=== PATIENT | female | born 1960 | race Caucasian/White ===

== ENCOUNTER 2021-05-04 10:20 | Emergency (ER) | payer OTHER, SELFPAY ==
[2021-05-04 10:32] VITALS: BP 136/73; PULSE 95; RESP 16; TEMP 36.8; O2SAT 98
--- NOTE | 2021-05-04 11:43 | ED.URI ---
HPI - URI/Sore Throat General Chief Complaint: Upper Respiratory Infection Stated Complaint: Bad cough, stomach pains Time Seen by Provider: 05/04/21 11:43 Source: patient and RN notes reviewed Mode of arrival: ambulatory Limitations: no limitations History of Present Illness HPI Narrative: 60-year-old female presents concern for 5-day history of persistent cough, rhinorrhea. She reports she has been vaccinated for Covid. She denies fever, body aches, chills, sweats, ear pain, sore throat. Reports itchy ears. Reports discomfort with coughing to the right upper back MD elicited complaint: cough and rhinorrhea Related Data Home Medications Medication Instructions Recorded Confirmed levothyroxine 112 mcg PO DAILY 05/04/21 05/04/21 primidone 50 mg PO HS 05/04/21 05/04/21 Allergies Allergy/AdvReac Type Severity Reaction Status Date / Time No Known Allergies Allergy Verified 05/04/21 10:40 Review of Systems Review of Systems: CONSTITUTIONAL: Denies malaise, chills, sweats, or fever. EYES: Denies visual changes, redness, or discharge. ENT: Reports rhinorrhea. Denies congestion, sinus pain, otalgia and sore throat. CARDIOVASCULAR: Denies chest pain, palpitations, or edema. RESPIRATORY: Reports persistent cough. Denies dyspnea. GASTROINTESTINAL: Denies abdominal pain, nausea, vomiting, diarrhea SKIN: Denies rash or itching. MUSCULOSKELETAL: Denies myalgia. Reports upper back pain with coughing NEUROLOGIC: Denies headache. All systems reviewed & are unremarkable except as noted in HPI and below PMFSH Family History Family History (Updated 01/02/16 @ 23:21 by DOCTOR UNKNOWN) Mother Patient's mother is in good health Hypertension Father Patient's father is in good health Family history of diabetes mellitus in first degree relative Sibling Patient's sister is in good health Patient's brother is in good health Other Diabetes mellitus Family history of kidney disease Social History Social History Smoking status: Former smoker Second hand tobacco smoke exposure: No Smoking end date: 06/06/08 Alcohol intake: never Comments At time of signature, agree with nursing past medical, surgical, social and family history. There is no relevant family history pertinent to the presenting complaint Exam Narrative: GENERAL: Well-appearing, well-nourished, and in no acute distress. HEAD: Normocephalic EYES: PERRLA, conjunctivae clear ENT: Nares clear, clear discharge. Mucous membranes moist. TM pearly james with sharp light reflex bilaterally; no tragal tenderness. Oropharynx not erythematous without lesions. Tonsils not enlarged and without exudate, no drooling, no hoarseness, no trismus, uvula midline. NECK: Supple. No lymphadenopathy CHEST: Clear to auscultation, breath sounds equal. No wheezing, rhonchi, rales, or stridor. No respiratory distress, speaks in full sentences. Cough noted HEART: Regular rate and rhythm. No murmur heard. SKIN: Warm, dry, no rash. NEURO: Alert and oriented x3. PSYCH: Normal mood and affect Course Course Emergency Course: Patient is aware of diagnosis, understands and agrees to treatment plan. Anticipatory guidance given. Patient agrees to follow-up as directed and is aware of reasons to seek care at the emergency department. Portions of this record may have been created with voice recognition software Vital Signs Vital signs: Vital Signs Temperature 98.3 F 05/04/21 10:32 Pulse Rate 95 05/04/21 10:32 Respiratory Rate 16 05/04/21 10:32 Blood Pressure 136/73 05/04/21 10:32 Pulse Oximetry 98 05/04/21 10:32 Temperature 98.3 F 05/04/21 10:32 Pulse Rate 95 05/04/21 10:32 Respiratory Rate 16 05/04/21 10:32 Blood Pressure 136/73 05/04/21 10:32 Pulse Oximetry 98 05/04/21 10:32 Reviewed. MDM - URI/Sore Throat MDM Narrative Medical decision making narrative: Differential diagnosis considered: Jin virus, strep pharyngitis, allergic rh
== END 2021-05-04 11:55 | disposition home or self-care (01) ==
PROVIDERS: Emergency Provider Nurse Practitioner
DX: J06.9 Acute upper respiratory infection, unspecified (principal); Z87.891 Personal history of nicotine dependence; E03.9 Hypothyroidism, unspecified; Z85.3 Personal history of malignant neoplasm of breast; N61.1 Abscess of the breast and nipple
CPT/HCPCS: 99203; G0463

== ENCOUNTER 2021-05-15 14:43 | Emergency (ER) | payer SELFPAY ==
--- NOTE | ~2021-05-15 | XR_ITS ---
EXAMINATION: XR chest 2V DATE: 05/15/2021 15:10 INDICATION: Persistent cough TECHNIQUE: PA and lateral views of the chest are obtained. COMPARISON: No comparisons are currently available FINDINGS: There is subsegmental atelectasis of the left lung base. There is no pleural effusion or pn eumothorax. The cardiomediastinal silhouette is normal. There is mild thoracic spondylosis. Surgical clips are noted in the left breast and left axilla. IMPRESSION: 1. Mild atelectasis of the left lung base. Reviewed, dictated and finalized at location [facility]. [facility]
[2021-05-15 14:48] VITALS: BP 148/85; PULSE 94; RESP 14; TEMP 36.2; O2SAT 97
--- NOTE | 2021-05-15 15:41 | ED.URI ---
HPI - URI/Sore Throat General Chief Complaint: Upper Respiratory Infection Stated Complaint: cough causing pain Source: patient and RN notes reviewed Mode of arrival: ambulatory History of Present Illness HPI Narrative: This is a 60-year-old female that presented to urgent care with complaints of right ear pain and drainage chronic cough and runny nose. Patient was recently here at our facility on 05/04/2021 and diagnosed with upper respiratory infection she notes that her condition has not improved she continues to have a chronic cough. She also notes that she has had some issues with her right ear she notes that she felt congested in the right ear and later experienced yellowish drainage from the ear after feeling a pop. The patient denies SOB, CP, palpitation, extremity numbness, lightheadedness, decrease in hearing, dizziness, constipation, diarrhea, chills, or fever. Covid and influenza negative Related Data Home Medications Medication Instructions Recorded Confirmed levothyroxine 112 mcg PO DAILY 05/04/21 05/15/21 primidone 50 mg PO BID 05/04/21 05/15/21 Allergies Allergy/AdvReac Type Severity Reaction Status Date / Time No Known Allergies Allergy Verified 05/15/21 14:59 Review of Systems Review of Systems: A 14 organ system Review of Systems was performed and pertinent positives included in the HPI, otherwise remaining ROS is negative. [facility] Family History Family History (Updated 05/15/21 @ 15:43 by RONI Perez) Mother Patient's mother is in good health Hypertension Father Patient's father is in good health Family history of diabetes mellitus in first degree relative Sibling Patient's sister is in good health Patient's brother is in good health Other Diabetes mellitus Family history non-contributory Family history of kidney disease Social History Social History Smoking status: Former smoker Second hand tobacco smoke exposure: No Smoking end date: 06/06/08 Alcohol intake: never Exam Narrative: GENERAL: This is a well-nourished, well-developed patient, in no apparent distress. HEAD: normocephalic, atraumatic. EYES: PERRL. Sclera clear/white. Vision is grossly intact. EARS: External ears normal, auditory canals with slight edema and without drainage, TMs normal with perforation. Hearing grossly intact. NOSE: External nose normal with no obvious nasal discharge, nares without redness, no rhinorrhea. THROAT: Mucous membranes moist, posterior pharynx clear. NECK: Neck supple, non-tender without lymphadenopathy, masses or thyromegaly. CARDIOVASCULAR: Regular rate and rhythm without murmurs, gallops, or rubs. RESPIRATORY: Left upper and lower lobe diminished. All other de clear GASTROINTESTINAL: Abdomen soft, non-tender, nondistended. Bowel sounds are active. No hepato-splenomegaly, or palpable masses. No guarding. SKIN: warm, intact with no suspicious lesions or rash, good texture and turgor. NEURO: awake, alert, and oriented to person, place and time. There were no obvious focal neurologic abnormalities. Steady gait EXTREMITIES: Normal range of motion. No edema. No calf tenderness. Negative Homans sign bilaterally. BACK: Nontender without deformity or crepitance. No flank tenderness. Course Course Emergency Course: Patient diagnosed with bronchitis she will discharge home with albuterol, Tessalon Perles, guaifenesin in Augmentin for treatment of her otitis media. Vital Signs Vital signs: Vital Signs Temperature 97.2 F L 05/15/21 14:48 Pulse Rate 94 05/15/21 14:48 Respiratory Rate 14 05/15/21 14:48 Blood Pressure 148/85 H 05/15/21 14:48 Pulse Oximetry 97 05/15/21 14:48 Temperature 97.2 F L 05/15/21 14:48 Pulse Rate 94 05/15/21 14:48 Respiratory Rate 14 05/15/21 14:48 Blood Pressure 148/85 H 05/15/21 14:48 Pulse Oximetry 97 05/15/21 14:48 MDM - URI/Sore Throat Differenti
== END 2021-05-15 15:59 | disposition home or self-care (01) ==
PROVIDERS: Emergency Provider Nurse Practitioner
DX: J40 Bronchitis, not specified as acute or chronic (principal); H66.90 Otitis media, unspecified, unspecified ear; Z20.822 Contact with and (suspected) exposure to COVID-19; Z87.891 Personal history of nicotine dependence
CPT/HCPCS: 71046; 87426; 87804; 99213; C9803; G0463

== ENCOUNTER 2021-09-18 08:22 | Emergency (ER) | payer SELFPAY ==
[2021-09-18 08:27] VITALS: BP 152/72; PULSE 88; RESP 20; TEMP 36.2; O2SAT 98
--- NOTE | 2021-09-18 08:37 | ED.FEMALEGU ---
HPI - Female Genitourinary General Chief complaint: Urogenital-Female Stated complaint: Urinary Problem Time Seen by Provider: 09/18/21 08:38 Source: patient, RN notes reviewed and old records reviewed Mode of arrival: ambulatory Limitations: no limitations History of Present Illness HPI Narrative: 60 year old [facility] complaints of urinary frequency, urgency, and burning since yesterday.Patient reports that she has been taking Azo for her symptoms with last dose taken this morning. Patient denies any vaginal discharge or any itching,denies any concern for STD exposure. Patient reports that she has had kidney stones in the past but denies any back pain or any suprapubic or abdominal discomfort as she has experienced before with stones. MD elicited complaint: dysuria Onset (ago): day(s) (1) Consistency: progressively worsening Vaginal discharge: none Vaginal bleeding: none Urinary symptoms: Dysuria, Urgency and Frequency Exacerbating factors: urination Relieving factors: none Treatment prior to arrival: OTC urinary analgesics Related Data Home Medications Medication Instructions Recorded Confirmed levothyroxine [Tirosint] 112 mcg PO .6 X WEEK 09/18/21 09/18/21 Allergies Allergy/AdvReac Type Severity Reaction Status Date / Time No Known Allergies Allergy Verified 09/18/21 08:38 Review of Systems Review of Systems: CONSTITUTIONAL: Denies fever, chills, or sweats. EYES: Denies visual changes, redness, or discharge. ENT: Denies rhinorrhea, congestion, sore throat, or otalgia. CARDIOVASCULAR: Denies chest pain, palpitations, or edema. RESPIRATORY: Denies cough or dyspnea. GASTROINTESTINAL: Denies abdominal pain, nausea, vomiting, or diarrhea. GENITOURINARY: Positive for dysuria denies any visible hematuria. SKIN: Denies rash or itching. MUSCULOSKELETAL: Denies back pain, joint pain, or myalgia. NEUROLOGIC: Denies headache, numbness, or weakness. PSYCHIATRIC: Denies anxiety or depression. All systems reviewed & are unremarkable except as noted in HPI and below PMFSH Past Medical History Medical History (Updated 09/18/21 @ 08:58 by Linda Alvarado NP) Breast cancer, left GERD (gastroesophageal reflux disease) Hypothyroid Kidney stones Surgical History Surgical History (Updated 09/18/21 @ 12:38 by Linda Alvarado NP) H/O left mastectomy H/O lithotripsy History of breast reconstruction History of cystoscopy with removal of kidney stones History of hysterectomy Hx of cholecystectomy Family History Family History Mother Patient's mother is in good health Hypertension Father Patient's father is in good health Family history of diabetes mellitus in first degree relative Sibling Patient's sister is in good health Patient's brother is in good health Other Diabetes mellitus Family history non-contributory Family history of kidney disease Social History Social History Smoking status: Former smoker Second hand tobacco smoke exposure: No Smoking end date: 06/06/08 Alcohol intake: never Comments At time of signature, agree with nursing past medical, surgical, social and family history. There is no relevant family history pertinent to the presenting complaint Exam Narrative: GENERAL: Well-appearing, well-nourished, and in no acute distress. HEAD: Normocephalic, atraumatic. EYES: PERRLA and EOMI. ENT: Nares clear, no rhinorrhea or epistaxis. Mucous membranes moist.TM's normal with good light reflex, throat pink with no lesions or exudates, tonsils absent NECK: Supple. no lymphadenopathy CHEST: Clear to auscultation. No respiratory distress. HEART: Regular rate and rhythm. No murmur heard. Normal peripheral pulses. ABDOMEN: Soft, nontender, nondistended, normal active bowel sounds.No CVA tenderness on exam, burning with urination frequency and urgency
== END 2021-09-18 09:00 | disposition home or self-care (01) ==
PROVIDERS: Emergency Provider Registered Nurse
DX: N39.0 Urinary tract infection, site not specified (principal); Z87.891 Personal history of nicotine dependence; K21.9 Gastro-esophageal reflux disease without esophagitis; E03.9 Hypothyroidism, unspecified; Z85.3 Personal history of malignant neoplasm of breast; Z90.12 Acquired absence of left breast and nipple
CPT/HCPCS: 81003; 87077; 87086; 87088; 87186; 99213; G0463

== ENCOUNTER 2021-10-05 11:53 | Emergency (ER) | payer SELFPAY ==
[2021-10-05 12:00] VITALS: BP 143/73; PULSE 97; RESP 16; TEMP 37.2; O2SAT 98
--- NOTE | 2021-10-05 12:40 | ED.FEMALEGU ---
HPI - Female Genitourinary General Chief complaint: Urogenital-Female Stated complaint: Urinary Problem Time Seen by Provider: 10/05/21 12:26 Source: patient and RN notes reviewed Mode of arrival: ambulatory Limitations: no limitations History of Present Illness HPI Narrative: Patient presents today complaining of 3-day history of urinary urgency, dysuria, lower abdominal cramping with mild nausea. Denies hematuria, back pain, fever. Patient was seen here approximately 2 weeks ago and diagnosed with a UTI and was placed on Keflex. States her symptoms did resolve for short period of time before returning. Her urine culture shows positive for E. coli and she was sensitive for Keflex. She has been taking Azo. Her last dose was this morning MD elicited complaint: UTI Related Data Home Medications Medication Instructions Recorded Confirmed levothyroxine [Tirosint] 112 mcg PO .6 X WEEK 09/18/21 10/05/21 Allergies Allergy/AdvReac Type Severity Reaction Status Date / Time No Known Allergies Allergy Verified 09/18/21 08:38 Review of Systems Review of Systems: CONSTITUTIONAL: Denies body aches, fever, chills, or sweats. EYES: Denies visual changes, redness, or discharge. ENT: Denies rhinorrhea, congestion, sore throat, or otalgia. CARDIOVASCULAR: Denies chest pain, palpitations, or edema. RESPIRATORY: Denies cough or dyspnea. GASTROINTESTINAL: Denies abdominal pain, vomiting, or diarrhea.+ Nausea GENITOURINARY: Denies hematuria.+., Urgency, abdominal cramping SKIN: Denies rash, itching, or wounds. MUSCULOSKELETAL: Denies back pain, joint pain, or myalgia. NEUROLOGIC: Denies headache, numbness, tingling, or weakness. PSYCH: Denies depression or anxiety. [facility] Past Medical History Medical History Breast cancer, left GERD (gastroesophageal reflux disease) Hypothyroid Kidney stones Surgical History Surgical History H/O left mastectomy H/O lithotripsy History of breast reconstruction History of cystoscopy with removal of kidney stones History of hysterectomy Hx of cholecystectomy Family History Family History Mother Patient's mother is in good health Hypertension Father Patient's father is in good health Family history of diabetes mellitus in first degree relative Sibling Patient's sister is in good health Patient's brother is in good health Other Diabetes mellitus Family history non-contributory Family history of kidney disease Social History Social History Smoking status: Former smoker Second hand tobacco smoke exposure: No Smoking end date: 06/06/08 Alcohol intake: never Comments At time of signature, I have reviewed and agree with nursing past medical, surgical, social and family history unless otherwise noted. Please see nursing chart for further information. There is no relevant family history pertinent to the presenting complaint Exam Narrative: GENERAL: Well-appearing, well-nourished, and in no acute distress. HEAD: Normocephalic, atraumatic. EYES: EOMI. No redness or drainage. Conjunctivae normal. ENT: Mucous membranes pink and moist. NECK: Normal AROM. CHEST: No respiratory distress. Clear to auscultation. HEART: Regular rate and rhythm. No murmur appreciated. Normal peripheral pulses. ABDOMEN: Soft, nontender, nondistended, normal active bowel sounds.-CVAT MUSCULOSKELETAL: No bony tenderness. EXTREMITIES: Normal range of motion. No edema. SKIN: Warm, dry, no rash. Capillary refill normal. Normal skin turgor. NEURO: No focal deficits. Alert and oriented x3. Gait steady. PSYCH: Normal affect. No signs of depression or anxiety. Course Course Level of Care: Express Care Visit Vital Signs Vital signs: Vital Signs Te
== END 2021-10-05 12:47 | disposition home or self-care (01) ==
PROVIDERS: Emergency Provider Nurse Practitioner
DX: N30.01 Acute cystitis with hematuria (principal); E03.9 Hypothyroidism, unspecified; Z87.891 Personal history of nicotine dependence; Z85.3 Personal history of malignant neoplasm of breast
CPT/HCPCS: 81003; 87086; 87088; 99213; G0463

== ENCOUNTER 2022-09-17 11:19 | Emergency (ER) | payer OTHER, SELFPAY ==
[2022-09-17 11:30] VITALS: BP 147/80; PULSE 103; RESP 18; TEMP 36.7; O2SAT 96
--- NOTE | 2022-09-17 12:23 | ED.URI ---
HPI - URI/Sore Throat General Chief Complaint: Upper Respiratory Infection Stated Complaint: Chest Congestion Time Seen by Provider: 09/17/22 12:23 Source: patient Mode of arrival: ambulatory Limitations: no limitations History of Present Illness HPI Narrative: 61 year old female who presents to [facility] care with complaints of one week duration of cough some shortness of breath, and wheezing with head congestion. Patient reports that her cough is harsh and she has some back and rib pain from coughing. She reports that spouse had cold last week. She has taken some DayQuil and NyQuil for her symptoms and had a left over Tessalon Perle with no improvement in symptoms. MD elicited complaint: cough, rhinorrhea, nasal congestion and other (wheezing and some SOB) Onset (ago): week(s) (1) Consistency: constant Pain scale (0-10): 2 Description of mucous: clear Able to tolerate fluids by mouth: Yes Exacerbating factors: exertion Treatments prior to arrival: other (DayQuil,NyQuil, left over Tesslon Perle) Related Data Home Medications Medication Instructions Recorded Confirmed levothyroxine 112 mcg capsule 112 mcg PO .6 X WEEK 09/18/21 09/17/22 (Tirosint) Allergies Allergy/AdvReac Type Severity Reaction Status Date / Time No Known Allergies Allergy Verified 09/18/21 08:38 Review of Systems Review of Systems: CONSTITUTIONAL: reports malaise, no chills, sweats, or fever. EYES: Denies visual changes, redness, or discharge. ENT: Reports rhinorrhea, congestion, sinus pain, no otalgia and sore throat. CARDIOVASCULAR: Denies chest pain, palpitations, or edema. RESPIRATORY: Reports harsh cough.? dyspnea with exertion GASTROINTESTINAL: Denies abdominal pain, nausea, vomiting, diarrhea SKIN: Denies rash or itching. MUSCULOSKELETAL: Denies myalgia. NEUROLOGIC: Denies headache. All systems reviewed & are unremarkable except as noted in HPI and below PMFSH Past Medical History Medical History Breast cancer, left GERD (gastroesophageal reflux disease) Hypothyroid Kidney stones Surgical History Surgical History H/O left mastectomy H/O lithotripsy History of breast reconstruction History of cystoscopy with removal of kidney stones History of hysterectomy Hx of cholecystectomy Family History Family History Mother Patient's mother is in good health Hypertension Father Patient's father is in good health Family history of diabetes mellitus in first degree relative Sibling Patient's sister is in good health Patient's brother is in good health Other Diabetes mellitus Family history non-contributory Family history of kidney disease Social History Social History (Updated 09/19/22 @ 08:33 by Linda Alvarado NP) Smoking status: Former smoker Second hand tobacco smoke exposure: No Smoking end date: 06/06/08 Alcohol intake: never Substance use: never Living arrangements: with family Gender identity (if verbalized by the patient): Female Comments At time of signature, agree with nursing past medical, surgical, social and family history. There is no relevant family history pertinent to the presenting complaint Exam Narrative: GENERAL: Well-appearing, well-nourished, and in no acute distress. HEAD: Normocephalic EYES: PERRLA, conjunctivae clear ENT: Nares clear, turbinates edematous and erythematous, clear discharge. Mucous membranes moist. TM pearly james with dull light reflex bilaterally; no tragal tenderness. Oropharynx erythematous without lesions. Tonsils not present and throat without exudate, no drooling, no hoarseness, no trismus, uvula midline.post nasal drainage NECK: Supple. No lymphadenopathy CHEST:Scattered wheezes on auscultation, breath sounds equal.positive for wheezing,no rhonchi, rales, or stridor
== END 2022-09-17 12:40 | disposition home or self-care (01) ==
PROVIDERS: Emergency Provider Registered Nurse
DX: J40 Bronchitis, not specified as acute or chronic (principal); Z87.891 Personal history of nicotine dependence; K21.9 Gastro-esophageal reflux disease without esophagitis; E03.9 Hypothyroidism, unspecified; Z85.3 Personal history of malignant neoplasm of breast; Z90.12 Acquired absence of left breast and nipple
CPT/HCPCS: 99213; G0463